=== PATIENT | female | born 1990 | race Caucasian/White ===

== ENCOUNTER 2020-03-22 15:29 | Emergency (ER) | payer BC ==
[~2020-03-22] VITALS: Ht 167.6 cm; Wt 67.6 kg
[2020-03-22] MEDS ORDERED: ADDERALL 12.512.5 MG PO (15:41)
[2020-03-22] MEDS ORDERED: XARELTO20 MG PO (15:41)
[2020-03-22] MEDS ORDERED: ADDERALL 10 MG10 MG PO (15:42)
[2020-03-22] MEDS ORDERED: WELLBUTRIN SR150 MG PO (15:42)
[2020-03-22 16:12] LABS: ABSOLUTE NEUTROPHILS 5.6 thou/uL (1.4-8.2); BASOPHILS 0.8 % (0.0-2.0); EOSINOPHILS 0.3 % (0.0-3.0); HEMATOCRIT 33.2 % (37.0-47.0); HEMOGLOBIN 10.8 gm/dL (12.0-15.0); LYMPHOCYTES 23.6 % (24.0-44.0); MCH 23.9 pg (26.0-34.0); MCHC 32.6 g/dL (28.0-37.0); MCV 73.4 fL (80.0-100.0); PLATELET COUNT 345 thou/uL (150-400); POLYS 68.3 % (36.0-66.0); RBC 4.52 mil/uL (4.20-5.00); RDW 16.7 % (10.5-14.5); WBC 8.2 thou/uL (4.0-11.0)
[2020-03-22 16:15] LABS: CALCIUM 8.5 mg/dL (8.5-10.1); CREATININE 1.1 mg/dL (0.6-1.0); POTASSIUM 4.4 mmol/L (3.5-5.1)
[2020-03-22 16:21] LABS: TOTAL BILIRUBIN 0.3 mg/dL (0.2-1.0); TOTAL PROTEIN 7.5 g/dL (6.4-8.2)
[2020-03-22 16:24] LABS: INR 1.1; PROTIME 11.6 Seconds (9.3-11.4)
[2020-03-22 18:14] VITALS: BP 118/64
--- NOTE | 2020-03-23 07:42 | EKG ---
[facility] [place] [address] ELECTROCARDIOGRAM REPORT Name: SUKHWINDER MATHEW Room #: DEP [facility].#: [id number] Admission: 03/22/20 Attend Phys: Discharge: 03/22/20 Date of : 88 Report #: [id number] THIS REPORT FOR: cc: William Zuniga MD, Neal A. MD Lundgren,Jayesh Shaw MD [facility] ~ THIS REPORT FOR: //name// [facility] ED Test Date: 2020-03-22 Test Time: 17:33:31 Pat Name: SUKHWINDER MATHEW Department: Room: Gender: F Surface [employer]inder: : 1990 Requested By: Jeremias Grewal Order Number: [id number] MD: Jayesh Samuel Measurements Intervals [place] Rate: 68 P: 56 [place]: 148 QRS: -13 QRSD: 90 T: 23 QT: 398 QTc: 424 Interpretive Statements Sinus arrhythmia Early repolarization No previous ECG available for comparison Electronically Signed On 03-23-2020 7:42:21 CDT by Jayesh Samuel [email or web address] <ELECTRONICALLY SIGNED> By: Jayesh Samuel MD, [facility] 03/23/20 [id number] Jayesh Samuel MD, [facility] /EPI
== END 2020-03-22 18:33 | disposition home or self-care (01) ==
LOC: ER 15:29
PROVIDERS: Physician Assistant
DX: R06.02 Shortness of breath (principal); Z20.828 Contact with and (suspected) exposure to other viral communicable diseases; R42 Dizziness and giddiness; M79.662 Pain in left lower leg; M79.89 Other specified soft tissue disorders; Z86.718 Personal history of other venous thrombosis and embolism; Z86.711 Personal history of pulmonary embolism; Z79.899 Other long term (current) drug therapy; Z88.8 Allergy status to other drugs, medicaments and biological substances

== ENCOUNTER 2021-10-17 10:17 | Emergency (ER) | payer OTHER ==
[~2021-10-17] VITALS: Ht 167.6 cm; Wt 69.8 kg
[~2021-10-17 10:17] MED LIST: ADDERALL 10 MG10 MG PO; ADDERALL 12.512.5 MG PO; WELLBUTRIN SR150 MG PO; XARELTO20 MG PO
[2021-10-17 10:40] LABS: ABSOLUTE NEUTROPHILS 4.7 thou/uL (1.4-8.2); BASOPHILS 0.4 % (0.0-2.0); EOSINOPHILS 0.5 % (0.0-3.0); HEMATOCRIT 46.6 % (37.0-47.0); HEMOGLOBIN 15.8 gm/dL (12.0-15.0); LYMPHOCYTES 24.1 % (24.0-44.0); MCH 31.2 pg (26.0-34.0); MCHC 33.9 g/dL (28.0-37.0); MCV 91.9 fL (80.0-100.0); MONOCYTES 6.5 % (1.0-8.0); PLATELET COUNT 265 thou/uL (150-400); POLYS 68.5 % (36.0-66.0); RBC 5.07 mil/uL (4.20-5.00); WBC 6.9 thou/uL (4.0-11.0)
[2021-10-17 10:44] LABS: URINE BILIRUBIN NEGATIVE (Negative); URINE BLOOD 1+ (Negative); URINE CLARITY CLEAR; URINE COLOR YELLOW; URINE GLUCOSE-RANDOM* NEGATIVE (Negative); URINE KETONES NEGATIVE (Negative); URINE LEUKOCYTES-REFLEX NEGATIVE (Negative); URINE NITRITE-REFLEX NEGATIVE (Negative); URINE PROTEIN (DIPSTICK) NEGATIVE (Negative); URINE SPECIFIC GRAVITY >= 1.030 (1.005-1.035); URINE UROBILINOGEN 0.2 E.U./dl (0.2-1.0)
[2021-10-17 10:54] LABS: CALCIUM 9.1 mg/dL (8.5-10.1); CREATININE 0.9 mg/dL (0.6-1.0); POTASSIUM 4.6 mmol/L (3.5-5.1)
[2021-10-17 11:00] LABS: CASTS None Seen /LPF (None Seen); SQUAMOUS 0-3 Few /LPF (0-3)
[2021-10-17 11:01] LABS: ALBUMIN 4.2 g/dL (3.4-5.0); TOTAL BILIRUBIN 0.8 mg/dL (0.2-1.0); TOTAL PROTEIN 7.5 g/dL (6.4-8.2)
[2021-10-17 11:03] LABS: BACTERIA-REFLEX None Seen /HPF (None Seen); CRYSTALS None Seen /LPF (None Seen); URINE RBC 1-2 Rare /HPF (NONE SEEN); URINE WBC-REFLEX None Seen /HPF (0-5)
[2021-10-17] MEDS ORDERED: PRILOSEC OTC20 MG PO (13:16)
[2021-10-17] MEDS ORDERED: APAP W/CODEINE1 TA2 PO (13:16)
[2021-10-17 13:20] VITALS: BP 126/72
== END 2021-10-17 13:20 | disposition home or self-care (01) ==
LOC: ER 10:17
PROVIDERS: Emergency Medicine
DX: R10.13 Epigastric pain (principal); Z79.899 Other long term (current) drug therapy; Z88.8 Allergy status to other drugs, medicaments and biological substances